=== PATIENT | female | born 1995 | race Caucasian/White ===

== ENCOUNTER 2022-07-22 13:44 | Emergency (ER) | payer OTHER, SELFPAY ==
[2022-07-22 13:55] VITALS: BP 135/87; PULSE 69; RESP 20; TEMP 36.9; O2SAT 100; BMI 41.0
--- NOTE | 2022-07-22 14:01 | XR_ITS ---
FINAL REPORT CLINICAL HISTORY: fall. lateral sided foot and ankle pain FINDINGS: Right ankle Three views were obtained. There is no acute fracture or dislocation. There are postoperative changes in the medial midfoot. The joint spaces appear normal. No soft tissue abnormality is identified. IMPRESSION: No acute process. Reviewed, Interpreted and Dictated by Keanu Mckenna III, MD Transcribed by Emmy Sotelo Authenticated and [facility]
--- NOTE | 2022-07-22 14:01 | XR_ITS ---
FINAL REPORT CLINICAL HISTORY: fall. lateral sided foot and ankle pain FINDINGS: Right foot Three views were obtained. There is no acute fracture or dislocation. There are postoperative changes in the medial midfoot. The joint spaces appear normal. No soft tissue abnormality is identified. IMPRESSION: No acute process. Reviewed, Interpreted and Dictated by Keanu Mckenna III, MD Transcribed by Emmy Sotelo Authenticated and [facility]
--- NOTE | 2022-07-22 14:02 | EXP.UTC ---
Discharge Plan Disposition Patient Disposition: Home, Self-Care Condition: Good Prescriptions Prescriptions: New ibuprofen [ibuprofen] 600 mg tablet 600 mg PO Q6HP PRN (Reason: Mild Pain) Qty: 30 0RF Referrals Follow up/Referrals: Provider,Referral, [Primary Care Provider] - See instructions Sierra Duffy DPM [Staff Physician] - See instructions Activity Restrictions/Add. Instructions Additional Instructions/Restrictions: Rest the extremity, apply ice for 15 minutes as tolerated three or four times per day, Wear the jefe wrap for compression, Elevate the extremity as tolerated while you are resting. Take ibuprofen for pain. I sent in a prescription to your pharmacy. Follow up with Dr. Duffy (podiatry). I put in a referral but you need to call her office and schedule an appointment. Follow up with your regular doctor. GO TO THE ER FOR ANY WORSENING SYMPTOMS Clinical Impressions Clinical Impression: Sprain of foot, right Stand Alone Forms Stand Alone Forms: Work/School Release Instructions Patient Instructions: DI for Ankle Sprain, DI for Foot Sprain Discharge ED Provider: Amadou Null [facility] General Stated complaint: 07/22 Fall@work RT foot pain Time Seen by Provider: 07/22/22 14:00 History of Present Illness Provider Complaint: She states that she twisted her right foot and ankle earlier today. Now, she his having right foot and ankle pain. Her pain is worse when she tries to bear weight on it. Related Data Previous Rx's Medication Instructions Recorded ibuprofen 600 mg tablet 600 mg PO Q6HP PRN Mild Pain #30 07/22/22 tabs Allergies Allergy/AdvReac Type Severity Reaction Status Date / Time No Known Allergies Allergy Verified 07/22/22 14:11 [facility] Disclaimer: The information contained in this section may have been updated after the patient was seen, as this information can be updated by other users. Surgical History History of foot surgery Social History Smoking Status: Unknown if ever smoked alcohol intake: never current occupational status: employed Travel in the last 8 weeks: None ROS Obtained: Yes All systems reviewed & no additional complaints except as documented Constitutional Constitutional: Denies chills and Denies fever(s) Integumentary/Breasts Skin/Breast: Denies redness, Denies rash and Denies wounds Neurologic Neurologic: Denies paresthesias Physical Exam General General appearance: alert and in no apparent distress Head Head exam: atraumatic, normocephalic and normal inspection Eye Eye exam: Present normal appearance, PERRL and EOMI ENT ENT exam: Present normal exam, normal oropharynx, mucous membranes moist, TM's normal bilaterally and normal external ear exam Neck Neck exam: Present normal inspection, full ROM and trachea midline; Absent meningismus or lymphadenopathy Chest Chest inspection: Present normal inspection and symmetric chest wall rise; Absent tenderness Respiratory Respiratory exam: Present normal lung sounds bilaterally; Absent respiratory distress Cardiovascular Cardiovascular exam: Present regular rate and normal rhythm; Absent JVD Abdominal Exam Abdominal exam: Present soft and normal bowel sounds; Absent distention, tenderness or guarding Extremities Exam Extremities exam: Present normal capillary refill; Absent calf tenderness Expanded Lower Extremity Exam Right: Knee exam: Present normal inspection and full ROM; Absent tenderness Lower leg exam: Present normal inspection, full ROM and Achilles tendon intact; Absent tenderness Ankle exam: Present full ROM and tenderness; Absent swelling, abrasion, laceration, ecchymosis, deformity, crepitus, dislocation, erythema, tenderness over talofibular lig or anterior draw sign Foot/toe exam: Present full ROM and tenderness; Absent swelling, ariana
[2022-07-22 14:40] VITALS: BP 135/87; PULSE 69; RESP 20; TEMP 36.9; O2SAT 100
--- NOTE | 2022-07-22 15:26 | PC.NURSE ---
AIR SPLINT APPLIED TO PATIENT'S RIGHT ANKLE. PATIENT REFUSED CRUTCHES AT THIS TIME
== END 2022-07-22 15:30 | disposition home or self-care (01) ==
PROVIDERS: Emergency Provider Nurse Practitioner Family
DX: S93.601A Unspecified sprain of right foot, initial encounter (principal); Z87.39 Personal history of other diseases of the musculoskeletal system and connective tissue; W18.40XA Slipping, tripping and stumbling without falling, unspecified, initial encounter; Y99.0 Civilian activity done for income or pay
CPT/HCPCS: 73610; 73630; 99213; G0463

== ENCOUNTER → 2022-09-13 16:54 | Outpatient (CLI) | payer OTHER, SELFPAY ==
--- NOTE | 2022-09-13 16:56 | MR_ITS ---
PROCEDURE INFORMATION: Exam: MR Right Lower Extremity Joint Without Contrast; Ankle Exam date and time: 09/13/2022 5:00 PM Age: 27 years old Clinical indication: Injury or trauma; Fall; Work related; Sprain or strain; Ankle; Injury date: 07/22/2022; Prior surgery; Surgery date: 6+ months; Surgery type: Right foot; Additional info: Ankle injury. Fall at work on 07/22/22. Has numbness in foot and ankle. Swelling and hurts when moves. TECHNIQUE: Imaging protocol: Magnetic resonance imaging of the right lower extremity without contrast. Exam focused on the ankle. COMPARISON: 1. CR XR ANKLE RT MIN 3V 07/22/2022 1:59 PM 2. CR XR FOOT RT MIN 3V 07/22/2022 2:02 PM FINDINGS: Bones/joints: There is susceptibility artifact surrounding screws that extend from the medial cuneiform into the intermediate cuneiform and from the proximal second metatarsal into the medial cuneiform. Within the limits of susceptibility artifact, neither of these joints appear to have significant bridging bone although this would be better assessed with CT. There is likely mild to moderate secondary osteoarthritis involving the first and second tarsometatarsal joints. Again, this would be better assessed with CT. There is no acute fracture or dislocation. No aggressive bone lesions are present. A mild effusion involves the ankle joint. LIGAMENTS: Distal tibiofibular syndesmosis: Unremarkable. No tear. Anterior talofibular ligament: Unremarkable. No tear. Posterior talofibular ligament: Unremarkable. No tear. Calcaneofibular ligament: Unremarkable. No tear. Deltoid ligament complex: Unremarkable. No tear. TENDONS: Flexor tendons of foot: Trace tenosynovitis involves the flexor digitorum longus tendon. No tear. Tibialis posterior tendon: Mild tenosynovitis involves the tibialis posterior tendon. No tear. Peroneal tendons: Unremarkable as visualized. Extensor tendons of foot: Unremarkable as visualized. Tibialis anterior tendon: Unremarkable. Achilles tendon: There is no tear or significant tendinosis involving the Achilles tendon. Tarsal canal (Sinus tarsi): The sinus tarsi has normal fat signal. Tarsal tunnel: Unremarkable. Muscles: There is no focal muscle atrophy to suggest denervation. Soft tissues: No suspicious mass. Plantar fascia: There is no mass or significant fasciitis (fasciopathy) involving the plantar fascia. Other findings: The forefoot is included on the coronal sequences. Focal fluid between the first through third metatarsal heads may represent intermetatarsal bursitis, but can be present between the metatarsal heads in asymptomatic patients. IMPRESSION: 1. Moderate susceptibility artifact from screws in the medial midfoot without bridging bone apparent at the traversed joints. CT would better assess for osseous fusion. 2. 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 3. Mild tenosynovitis of the tibialis posterior tendon. 4. Fluid between the first through third metatarsal heads, suggesting intermetatarsal bursitis but can be seen in asymptomatic patients.
== END ==
PROVIDERS: PCP Internal Medicine Cardiovascular Disease; Visit Provider Podiatrist
DX: M25.571 Pain in right ankle and joints of right foot (principal); M79.671 Pain in right foot; M25.371 Other instability, right ankle; Z96.9 Presence of functional implant, unspecified
CPT/HCPCS: 73721